=== PATIENT | female | born 1975 | race Caucasian/White ===

== ENCOUNTER 2020-05-03 17:53 | Emergency (ER) | payer OTHER ==
[~2020-05-03] VITALS: Ht 162.6 cm; Wt 79.4 kg
[2020-05-03 17:54] VITALS: BP_SYST 118
[2020-05-03 19:27] LABS: BASOPHILS # (AUTO) 0.2 K/uL (0.0-0.2); EOSINOPHILS % (AUTO) 0.1 % (0.0-4.0); HEMATOCRIT 35.2 % (36-48); HEMOGLOBIN 12.2 g/dL (12.0-16.0); LYMPHOCYTES # (AUTO) 2.6 K/uL (1.0-5.5); LYMPHOCYTES % (AUTO) 14.4 % (20.5-51.5); MEAN CORPUSCULAR HEMOGLOBIN 32 pg (27-31); MEAN CORPUSCULAR HGB CONC 35 % (32-36); MEAN CORPUSCULAR VOLUME 92 fL (79.0-98.0); MONOCYTES # (AUTO) 1.3 K/uL (0.0-1.0); MONOCYTES % (AUTO) 7.1 % (1.7-9.3); NEUTROPHILS # (AUTO) 13.9 K/uL (1.8-7.7); NEUTROPHILS % (AUTO) 77.4 % (40.0-70.0); PLATELET COUNT (AUTO) 348 K/uL (130-430); RED BLOOD CELL COUNT(AUTO) 3.84 MIL/uL (4.2-6.2); RED CELL DISTRIBUTION WIDTH 14.1 % (9.0-15.0); WHITE BLOOD COUNT (AUTO) 17.9 K/uL (4.8-10.8)
[2020-05-03 19:41] LABS: CALCIUM 8.4 mg/dL (8.4-11.0); CREATININE 1.03 mg/dL (0.55-1.30)
[2020-05-03 19:47] LABS: TOTAL BILIRUBIN 0.4 mg/dL (0.0-1.0)
[2020-05-03 20:16] LABS: BILIRUBIN,URINE NEGATIVE (NEGATIVE); BLOOD, URINE 1+ (NEGATIVE); COLOR,URINE YELLOW (YELLOW); GLUCOSE,URINE NEGATIVE (NEGATIVE); KETONES,URINE NEGATIVE (NEGATIVE); NITRITE, URINE POSITIVE (NEGATIVE); PH,URINE 8.5 (5.0-8.0); PROTEIN URINE TRACE (NEGATIVE); UROBILINOGEN,URINE 0.2 (0.2-1.0)
[2020-05-03 20:23] LABS: CLARITY/URINE HAZY (CLEAR); LEUKOCYTE ESTERASE ,URINE 2+ (NEGATIVE)
[2020-05-03 20:24] LABS: BACTERIA,URINE MODERATE /HPF (None Seen); MUCUS,URINE None Seen /LPF (None Seen); RBC,URINE 0-3 /HPF (0-3); WBC,URINE 20-50 /HPF (0-3)
[2020-05-03] MEDS: KETOROLAC TROMETHAMINE 30 MG VIAL IVP ONE (20:33)
[2020-05-03] MEDS: NACL 0.9% 1,000 ML IV ONE (20:33)
[2020-05-03] MEDS: cefTRIAXone 1 GM IVPB PREMIX 50 ML IV ONE (22:33)
[2020-05-03 23:12] VITALS: BP_SYST 138
== END 2020-05-03 23:15 | disposition home or self-care (01) ==
LOC: SED 17:53
DX: N39.0 Urinary tract infection, site not specified (principal); Z88.6 Allergy status to analgesic agent
CPT/HCPCS: 36415; 76700; 80053; 81000; 83605; 83690; 85025; 87040; 87086; 96361; 96365; 96375; 99284; J7030